=== PATIENT | female | born 1995 | race Caucasian/White ===

== ENCOUNTER 2025-07-04 19:24 | Emergency (ER) | payer OTHER ==
[2025-07-04] MEDS ORDERED: Acetaminophen 500 MG TAB ONE (20:09)
== END 2025-07-04 20:37 | disposition home or self-care (01) ==
LOC: ERS 19:24
DX: S63.501A Unspecified sprain of right wrist, initial encounter (principal); F17.210 Nicotine dependence, cigarettes, uncomplicated; V89.2XXA Person injured in unspecified motor-vehicle accident, traffic, initial encounter
CPT/HCPCS: 99284